=== PATIENT | female | born 1945 | race Caucasian/White ===

== ENCOUNTER 2016-08-02 08:38 | Emergency (ER) | payer MEDICARE, OTHER ==
[2016-08-02] MEDS ORDERED: guaiFENesin/DEXTROMETHORPHAN 10 ML UDC PO STA (09:05)
[2016-08-02] MEDS ORDERED: ALBUTEROL NEB 2.5 MG/3 ML INH STA (09:05)
[2016-08-02] MEDS ORDERED: BENZONATATE 100 MG CAPSULE PO STA (09:05)
[2016-08-02] MEDS ORDERED: guaiFENesin/DEXTROMETHORPHAN 10 ML UDC ONE (09:09)
[2016-08-02] MEDS ORDERED: BENZONATATE 100 MG CAPSULE PO ONE (09:09)
[2016-08-02] MEDS ORDERED: ALBUTEROL NEB 2.5 MG/3 ML INH ONE (09:20)
== END 2016-08-02 10:44 | disposition home or self-care (01) ==
DX: J18.9 Pneumonia, unspecified organism (principal); I10 Essential (primary) hypertension; E11.9 Type 2 diabetes mellitus without complications; Z79.4 Long term (current) use of insulin; Z79.82 Long term (current) use of aspirin
CPT/HCPCS: 71020; 94640; 94664; 99283; 99284; A9270; J7613

== ENCOUNTER 2016-08-25 09:45 | Outpatient (CLI) | payer MEDICARE, OTHER | END 2016-08-25 09:46 | disposition home or self-care (01) | DX: G47.33 Obstructive sleep apnea (adult) (pediatric) (principal) | CPT/HCPCS: 99214; G0463 ==

== ENCOUNTER 2016-09-25 07:36 | Outpatient (CLI) | payer MEDICARE, OTHER | END 2016-09-25 07:37 | disposition home or self-care (01) | DX: E11.9 Type 2 diabetes mellitus without complications (principal); I10 Essential (primary) hypertension; E78.5 Hyperlipidemia, unspecified; G47.33 Obstructive sleep apnea (adult) (pediatric) ==

== ENCOUNTER 2016-10-23 14:06 | Outpatient (CLI) | payer MEDICARE, OTHER | END 2016-10-23 14:07 | disposition home or self-care (01) | DX: Z12.31 Encounter for screening mammogram for malignant neoplasm of breast (principal) ==

== ENCOUNTER 2017-08-02 07:33 | Outpatient (CLI) | payer MEDICARE, OTHER ==
[2017-08-02 12:49] LABS: HB2 TOTAL 14.7 g/dL; HEMOGLOBIN A1C 0.77 g/dL; HEMOGLOBIN A1C % 6.9 % (4.6-6.2)
[2017-08-02 12:52] LABS: THYROID STIMULATING HORMONE 5.03 uIU/mL (0.34-5.60)
[2017-08-02 12:54] LABS: ALBUMIN 4.2 g/dL (3.2-5.5); ALBUMIN/GLOBULIN RATIO 1.4 (1.0-2.2); ALKALINE PHOSPHATASE 50 IU/L (42-121); ALT ALANINE AMINOTRANSFERASE 36 IU/L (10-60); AST ASPARTATE AMINOTRANSFERASE 28 IU/L (10-42); BILIRUBIN,TOTAL 0.4 mg/dL (0.2-1.0); BUN - BLOOD UREA NITROGEN 20 mg/dL (6-20); CALCIUM 8.9 mg/dL (8.5-10.3); CARBON DIOXIDE - CO2 25 mmol/L (21-32); CHLORIDE 96 mmol/L (101-111); CHOL/HDL RATIO 6.9 (<4.4); CHOLESTEROL 220 mg/dL; CREATININE 0.9 mg/dL (0.4-1.0); FREE T4 (FREE THYROXINE) 0.64 ng/dL (0.58-1.64); GFR - MDRD 62 (>89); GLUCOSE 125 mg/dL (70-100); HDL CHOLESTEROL 32 mg/dL; SODIUM 130 mmol/L (135-145); TOTAL PROTEIN 7.1 g/dL (6.7-8.2)
[2017-08-02 15:02] LABS: LDL CHOLESTEROL,DIRECT 83 mg/dL; LDLD/HDL RATIO 2.6 (<4.4)
== END 2017-08-02 07:34 | disposition home or self-care (01) ==
LOC: LAB.F 07:33
PROVIDERS: ATTEND Internal Medicine Endocrinology, Diabetes & Metabolism
DX: E11.9 Type 2 diabetes mellitus without complications (principal)
CPT/HCPCS: 36415; 80053; 80061; 83036; 84439; 84443; 84481; 86376

== ENCOUNTER 2017-08-31 11:13 | Outpatient (CLI) | payer MEDICARE, OTHER | END 2017-08-31 11:14 | disposition home or self-care (01) | LOC: SC 11:13 | PROVIDERS: ATTEND Nurse Practitioner Family | DX: G47.33 Obstructive sleep apnea (adult) (pediatric) (principal) | CPT/HCPCS: 99213; G0463; 99212 ==

== ENCOUNTER 2017-09-22 05:52 | Emergency (ER) | payer MEDICARE, OTHER ==
[2017-09-22] MEDS ORDERED: NITROFURANTOIN MACRO 100 MG CAPSULE PO STA (06:07)
--- NOTE | 2017-09-22 06:15 | ED Physician Documentation ---
PD HPI FEMALE - Stated complaint Stated Complaint: FEMALE - Chief complaint Chief Complaint: Abd Pain - History obtained from History obtained from: Patient - History of Present Illness Timing - onset: Yesterday Timing - details: Gradual onset, Still present Associated symptoms: No: Fever, Abdominal pain, Pelvic pain Recently seen: Not recently seen - Additional information Additional information: patient is a 72 year old female with no significant past medical history who is presenting to the emergency department for dysuria, increased urinary frequency and hematuria. patient states that the symptoms started yesterday and she took an azo this morning. Review of Systems Constitutional: denies: Fever, Chills Eyes: denies: Decreased vision Ears: denies: Ear pain Nose: denies: Rhinorrhea / runny nose, Congestion GI: denies: Abdominal Pain, Nausea, Vomiting : reports: Dysuria, Frequency, Hematuria Skin: reports: Reviewed and negative Musculoskeletal: reports: Reviewed and negative Neurologic: denies: Generalized weakness Immunocompromised: denies: Immunocompromised PD PAST MEDICAL HISTORY - Past Medical History Past Medical History: Yes Cardiovascular: Hypertension, High cholesterol Respiratory: None Endocrine/Autoimmune: Type 2 diabetes GI: None : None Psych: None Musculoskeletal: None Derm:  Other Past Medical History: UTI - Past Surgical History Past Surgical History: Yes /[employer]: Hysterectomy HEENT: Tonsil/Adenoidectomy - Present Medications Home Medications: Ambulatory Orders Medication Instructions Recorded Confirmed Aspirin [Aspir 81] 81 mg PO DAILY 01/10/14 01/11/14 Insulin Glargine,Hum.rec.anlog 44 unit SQ DAILY 01/10/14 01/11/14 [Lantus Solostar] Lisinopril [Zestril] 40 mg PO DAILY 01/10/14 01/11/14 Metformin HCl [Metformin HCl ER] 500 mg PO BID 01/10/14 01/11/14 Metoprolol Succinate [Toprol Xl] 25 mg PO DAILY 01/10/14 01/11/14 Simvastatin 10 mg PO DAILY 01/10/14 01/11/14 Albuterol Sulfate [Proair Hfa 2 puffs INH Q4H PRN #1 inhaler 08/02/16 Inhaler] Benzonatate [Tessalon] 100 mg PO TID PRN #20 capsule 08/02/16 amLODIPine [Norvasc] 1 tab PO DAILY 08/02/16 guaiFENesin/DEXTROMETHORPHAN 10 ml PO Q6H PRN #120 ml 08/02/16 [Robitussin Dm] Nitrofurantoin Monohyd/M-Cryst 100 mg PO BID 5 Days capsule 09/22/17 [Macrobid 100 mg Capsule] - Allergies Allergies/Adverse Reactions: Allergies Allergy/AdvReac Type Severity Reaction Status Date / Time tetracycline [Tetracycline] Allergy Hives Verified 09/22/17 06:02 - Social History Does the pt smoke?: No Smoking Status: Never smoker Does the pt drink ETOH?: No Does the pt have substance abuse?: No - Immunizations Immunizations are current?: Yes - POLST Patient has POLST: No PD ED PE NORMAL - Vitals Vital signs reviewed: Yes - General General: Alert and oriented X 3, No acute distress - HEENT HEENT: Atraumatic, PERRL - Neck Neck: Supple, no meningeal sign - Cardiac Cardiac: RRR - Respiratory Respiratory: No respiratory distress - Abdomen Abdomen: Soft, Non tender, Non distended - Back Back: No CVA TTP - Derm Derm: Normal color, Warm and dry - Extremities Extremities: No deformity - Neuro Neuro: Alert and oriented X 3, No motor deficit, No sensory deficit - Psych Psych: Normal mood Results - Vitals Vitals: Vital Signs - 24 hr 09/22/17 05:55 Temperature 98.4 C H Heart Rate 84 Respiratory 16 Rate Blood Pressure 181/100 H O2 Saturation 99 Oxygen O2 Source Room air PD MEDICAL DECISION MAKING - ED course Complexity details: reviewed old records, reviewed results, re-evaluated patient , d/w patient ED course: Patient was seen and examined at bedside. patient was well appearing and in no distress. urine was collected and patient was treated with macrobid. Patient required no further work up at this time and was stable for discharge with outpatient follow up. Departure - Departure Disposition: 01 Home, Self Care Clinical Impression: Urinary tract infection Condition: Good Instructions: ED UTI Cystitis Female Follow-Up: Nina Denney PA-C [Primary Care Provider] - As Needed Prescriptions: Nitrofurantoin Monohyd/M-Cryst [Macrobid 100 mg Capsule] 100 mg PO BID 5 Days capsule Comments: Your symptoms today are being caused by a urinary tract infection. You had your first dose of antibiotics today and will be on them for the next five days. You can take motrin, tylenol or azo as needed for pain. You should stay well hydrated and drink plenty of water. You should follow up with your doctor if your symptoms persist. You may return to the emergency department at any time for new, worsening or uncontrollable symptoms.
[2017-09-22 06:34] LABS: BILIRUBIN,URINE NEGATIVE (NEGATIVE); GLUCOSE, URINE (UA) 250 mg/dL (NEGATIVE); KETONES,URINE (UA) NEGATIVE (NEGATIVE); LEUKOCYTE ESTERASE, URINE NEGATIVE (NEGATIVE); NITRITE,URINE POSITIVE (NEGATIVE); OCCULT BLOOD,URINE LARGE (NEGATIVE); PH,URINE 5.5 PH (5.0-7.5); PROTEIN,URINE 100 mg/dL (NEGATIVE); UROBILINOGEN,URINE 1 (NORMAL) E.U./dL (NORMAL)
[2017-09-22 06:37] LABS: BACTERIA,URINE None Seen /HPF (None Seen); CLARITY,URINE BLOODY (CLEAR); RBC,URINE TNTC /HPF (0-5); SQUAMOUS EPITHELIAL CELL,UR NONE SEEN (<= Few)
[2017-09-22 06:40] VITALS: BP 164/94
== END 2017-09-22 06:40 | disposition home or self-care (01) ==
LOC: ED 05:52
DX: N39.0 Urinary tract infection, site not specified (principal); I10 Essential (primary) hypertension; E11.9 Type 2 diabetes mellitus without complications; E78.00 Pure hypercholesterolemia, unspecified; Z79.84 Long term (current) use of oral hypoglycemic drugs; Z79.4 Long term (current) use of insulin; Z79.82 Long term (current) use of aspirin
CPT/HCPCS: 81001; 87086; 99283; A9270; 81003

== ENCOUNTER 2017-10-27 10:09 | Outpatient (CLI) | payer MEDICARE, OTHER ==
--- NOTE | 2017-10-28 09:54 | Mammography Report ---
DIGITAL SCREENING MAMMOGRAM: 10/27/2017 HISTORY: Asymptomatic. COMPARISON: 10/23/2016, 09/30/2015, 10/04/2014, 08/15/2013 and 05/16/2012. TECHNIQUE: Bilateral digital CC and MLO projections with a left exaggerated CC view. FINDINGS: There is extensive fatty replacement of the breast tissue. There is no dominant mass, skin thickening, architectural distortion, clustered suspicious microcalcifications or obvious interval change. IMPRESSION: NEGATIVE. BI-RADS CATEGORY 1 - NEGATIVE. SUGGEST RETURN TO ROUTINE SCREENING IN 12 MONTHS. STANDARD QUALIFYING STATEMENTS: 1. This examination was reviewed with the aid of Computer-Aided Detection (CAD). 2. A negative or benign imaging report should not delay biopsy if clinically suspicious findings are present. Consider surgical consultation if warranted. More than 5% of cancers are not identified by imaging. 3. Dense breasts may obscure an underlying neoplasm. TD: 10/28/2017 09:53
== END 2017-10-27 10:10 | disposition home or self-care (01) ==
LOC: DI.S 10:09
PROVIDERS: ATTEND Physician Assistant Medical
DX: Z12.31 Encounter for screening mammogram for malignant neoplasm of breast (principal)
CPT/HCPCS: 77067

== ENCOUNTER 2018-01-13 15:18 | Outpatient (CLI) | payer MEDICARE, OTHER ==
[2018-01-13 17:24] LABS: BASOPHILS # (AUTO) 0.1 10^3/uL (0.0-0.1); EOSINOPHILS # (AUTO) 0.2 10^3/uL (0.0-0.7); EOSINOPHILS % (AUTO) 2.6 %; HGB - HEMOGLOBIN 13.2 g/dL (12.0-16.0); LYMPHOCYTES # (AUTO) 2.4 10^3/uL (1.5-3.5); MEAN CORPUSCULAR HEMOGLOBIN 29.5 pg (27.0-31.0); MEAN CORPUSCULAR HGB CONC 33.9 g/dL (32.0-36.0); MEAN CORPUSCULAR VOLUME 86.9 fL (81.0-99.0); MONOCYTES # (AUTO) 0.6 10^3/uL (0.0-1.0); MONOCYTES % (AUTO) 6.5 %; NEUTROPHILS # (AUTO) 5.4 10^3/uL (1.5-6.6); NEUTROPHILS % (AUTO) 61.9 %; PLT - PLATELET COUNT 312 10^3/uL (130-450); RED BLOOD COUNT 4.49 10^6/uL (4.20-5.40); RED CELL DISTRIBUTION WIDTH 14.2 % (12.0-15.0); WHITE BLOOD COUNT 8.6 x10^3/uL (4.8-10.8)
== END 2018-01-13 15:19 | disposition home or self-care (01) ==
LOC: LAB.F 15:18
PROVIDERS: ATTEND Internal Medicine
DX: Z01.812 Encounter for preprocedural laboratory examination (principal)
CPT/HCPCS: 36415; 85025

== ENCOUNTER 2018-03-03 07:18 | Outpatient (CLI) | payer MEDICARE, OTHER ==
[2018-03-03 11:29] LABS: ALBUMIN 4.1 g/dL (3.2-5.5); ALBUMIN/GLOBULIN RATIO 1.6 (1.0-2.2); BILIRUBIN,TOTAL 0.5 mg/dL (0.2-1.0); CALCIUM 9.1 mg/dL (8.5-10.3); TOTAL PROTEIN 6.7 g/dL (6.7-8.2)
[2018-03-03 11:44] LABS: THYROID STIMULATING HORMONE 5.99 uIU/mL (0.34-5.60)
[2018-03-03 11:45] LABS: FREE T4 (FREE THYROXINE) 0.75 ng/dL (0.58-1.64)
[2018-03-03 11:49] LABS: HB2 TOTAL 13.4 g/dL; HEMOGLOBIN A1C 0.73 g/dL; HEMOGLOBIN A1C % 7.1 % (4.6-6.2)
== END 2018-03-03 07:19 | disposition home or self-care (01) ==
LOC: LAB.F 07:18
PROVIDERS: ATTEND Internal Medicine Endocrinology, Diabetes & Metabolism
DX: E11.9 Type 2 diabetes mellitus without complications (principal); I10 Essential (primary) hypertension
CPT/HCPCS: 36415; 80053; 83036; 84439; 84443; 84481

== ENCOUNTER 2018-08-23 08:12 | Outpatient (CLI) | payer MEDICARE, OTHER | END 2018-08-23 08:13 | disposition home or self-care (01) | LOC: SC 08:12 | PROVIDERS: ATTEND Nurse Practitioner Family | DX: G47.33 Obstructive sleep apnea (adult) (pediatric) (principal) | CPT/HCPCS: 99214; G0463; 99212 ==

== ENCOUNTER 2018-10-19 07:05 | Outpatient (CLI) | payer MEDICARE, OTHER ==
[2018-10-19 18:45] LABS: HEMOGLOBIN A1C 0.79 g/dL; HEMOGLOBIN A1C % 7.3 % (4.6-6.2)
[2018-10-19 18:54] LABS: CREATININE,URINE 69.9 mg/dL; MICROALBUM/CREATININE RATIO,UR 8.6 ug/mg (<30.0); MICROALBUMIN,URINE 0.6 mg/dL (0-300.0)
[2018-10-19 18:57] LABS: ALBUMIN 3.9 g/dL (3.2-5.5); ALBUMIN/GLOBULIN RATIO 1.4 (1.0-2.2); ALKALINE PHOSPHATASE 53 IU/L (42-121); ALT ALANINE AMINOTRANSFERASE 27 IU/L (10-60); AST ASPARTATE AMINOTRANSFERASE 20 IU/L (10-42); BILIRUBIN,TOTAL 0.6 mg/dL (0.2-1.0); BUN - BLOOD UREA NITROGEN 19 mg/dL (6-20); CARBON DIOXIDE - CO2 27 mmol/L (21-32); CHLORIDE 98 mmol/L (101-111); CHOL/HDL RATIO 7.8 (<4.4); CHOLESTEROL 235 mg/dL; CK- CREATINE KINASE 160 IU/L (22-269); GFR - MDRD 55 (>89); GLUCOSE 146 mg/dL (70-100); HDL CHOLESTEROL 30 mg/dL; SODIUM 134 mmol/L (135-145); TOTAL PROTEIN 6.7 g/dL (6.7-8.2)
[2018-10-19 18:59] LABS: THYROID STIMULATING HORMONE 5.23 uIU/mL (0.34-5.60)
[2018-10-19 19:01] LABS: FREE T4 (FREE THYROXINE) 0.73 ng/dL (0.58-1.64)
[2018-10-19 19:19] LABS: LDL CHOLESTEROL,DIRECT 84 mg/dL; LDLD/HDL RATIO 2.8 (<4.4)
== END 2018-10-19 07:06 | disposition home or self-care (01) ==
LOC: LAB.F 07:05
PROVIDERS: ATTEND Internal Medicine Endocrinology, Diabetes & Metabolism
DX: E11.9 Type 2 diabetes mellitus without complications (principal); I10 Essential (primary) hypertension; E78.5 Hyperlipidemia, unspecified
CPT/HCPCS: 36415; 80053; 80061; 81599; 82043; 82550; 82570; 83036; 83721; 84439; 84443; 84481; 84681

== ENCOUNTER 2018-12-28 13:40 | Outpatient (CLI) | payer MEDICARE, OTHER ==
--- NOTE | 2018-12-29 09:04 | Mammography Report ---
Reason: SCREENING MAMMO Procedure Date: 12/28/2018 Accession Number: [id number] / [id number] Procedure: RAMU - Screening Mammo w/Can CPT Code: FULL RESULT: EXAM: Screening Mammo w/Can DATE: 12/28/2018 2:20 PM CLINICAL HISTORY: Screening encounter. History of early menses. TECHNIQUE: (B) - Bilateral CC, laterally exaggerated CC, MLO views were obtained. COMPARISON: 10/27/2017 through 10/04/2014. PARENCHYMAL PATTERN: (F) - The breast(s) demonstrate(s) diffuse fatty replacement. FINDINGS: There are no suspicious masses, calcifications, or areas of distortion. IMPRESSION: Negative examination. BI-RADS category 1. RECOMMENDATION: (ANNUAL) - Recommend routine annual screening mammography. BI-RADS CATEGORY: (1) - Negative. STANDARD QUALIFYING STATEMENTS: 1. This examination was not reviewed with the aid of Computer-Aided Detection (CAD). 2. A negative or benign imaging report should not preclude biopsy if clinically suspicious findings are present. 3. Dense breasts may obscure an underlying neoplasm. 4. This examination was reviewed with the aid of 3D breast imaging (tomosynthesis).
== END 2018-12-28 13:41 | disposition home or self-care (01) ==
LOC: DI 13:40
DX: Z12.31 Encounter for screening mammogram for malignant neoplasm of breast (principal)
CPT/HCPCS: 77063; 77067

== ENCOUNTER 2019-05-03 07:15 | Outpatient (CLI) | payer MEDICARE, OTHER ==
[2019-05-03 10:24] LABS: ALBUMIN 4.4 g/dL (3.2-5.5); ALBUMIN/GLOBULIN RATIO 1.5 (1.0-2.2); ALKALINE PHOSPHATASE 34 IU/L (42-121); ALT ALANINE AMINOTRANSFERASE 22 IU/L (10-60); AST ASPARTATE AMINOTRANSFERASE 19 IU/L (10-42); BILIRUBIN,TOTAL 0.5 mg/dL (0.2-1.0); BUN - BLOOD UREA NITROGEN 23 mg/dL (6-20); CALCIUM 9.4 mg/dL (8.5-10.3); CARBON DIOXIDE - CO2 29 mmol/L (21-32); CHLORIDE 96 mmol/L (101-111); CHOL/HDL RATIO 5.5 (<4.4); CHOLESTEROL 186 mg/dL; GFR - MDRD 55 (>89); GLUCOSE 159 mg/dL (70-100); HDL CHOLESTEROL 34 mg/dL; LDL CHOLESTEROL,CALCULATED 104 mg/dL; LDL/HDL RATIO 3.1 (<4.4); SODIUM 135 mmol/L (135-145); TOTAL PROTEIN 7.3 g/dL (6.7-8.2); VLDL CHOLESTEROL 48 mg/dL
[2019-05-03 10:26] LABS: HB2 TOTAL 13.7 g/dL; HEMOGLOBIN A1C 0.82 g/dL; HEMOGLOBIN A1C % 7.6 % (4.6-6.2)
[2019-05-03 10:34] LABS: THYROID STIMULATING HORMONE 5.79 uIU/mL (0.34-5.60)
[2019-05-03 10:36] LABS: FREE T4 (FREE THYROXINE) 0.78 ng/dL (0.58-1.64)
== END 2019-05-03 07:16 | disposition home or self-care (01) ==
LOC: LAB.S 07:15
PROVIDERS: ATTEND Internal Medicine Endocrinology, Diabetes & Metabolism
DX: E11.9 Type 2 diabetes mellitus without complications (principal); I10 Essential (primary) hypertension; E78.5 Hyperlipidemia, unspecified
CPT/HCPCS: 36415; 80053; 80061; 83036; 83721; 84439; 84443

== ENCOUNTER 2019-08-22 08:14 | Outpatient (CLI) | payer MEDICARE, OTHER ==
[2019-08-22 09:09] VITALS: BP 120/76
--- NOTE | 2019-08-22 09:09 | SLEEP CARE CONSULTATION ---
Information from patient questionnaire entered by Silke Livingston. I have reviewed and concur with the information entered by Silke Livingston. This document represents the service I personally performed and the decisions made by me, Simran Gar RN, MSN, MILITARY NURSE. History of Present Illness Previous diagnosis: Severe, Obstructive Sleep Apnea-Hypopnea Syndrome AHI: 35.5 Reason for follow up: annual Equipment type: CPAP Equipment obtained from: [employer] Mask style: Nasal (Dreamwear) Mask brand: Respironics Backup mask available: Yes Last cushion change: 2 days ago Prior sleep studies: Yes CPAP Compliance Data - Data Reviewed with Patient Average duration of nightly device use: 6h 51m Compliance rate %: 99.4 Current pressure setting (cmH2O): 7 Humidity setting: off - uses water for passover Heated hose setting: off Average residual AHI: 0.5 Average large leak: 41s Subjective Patient concerns: denies: aerophagia, mask discomfort, air blowing in eyes, mask leak noise, condensation in mask/hose, nasal congestion, dry mouth, nose, throat, epistaxis Observed to snore while using device: No Current pressure setting perceived as: comfortable On therapy, patient: reports: sleeping better, awakening more refreshed, being more awake and alert during the day, more rested overall. denies: drowsiness while driving Initial [place] Sleepiness Scale score: 10 Current [place] Sleepiness Scale score: 6 Allergies and Home Medications Known drug allergies: Yes (tetracycline) Home medication list reviewed: Yes Allergy and home medication list: Medication Name (generic/name brand) Strength & Dosage Metoprolol Succinate ER 25mg tabs 1 daily Metformin HCL 500mg tabs 1 BID Lisinopril 40mg tabs 1 daily Lantus Solostar 100 UNIT/ML Inject 45 units SQ daily Advil 200mg caps 1 prn TEJEDA or muscle pain Hydrochlorothiazide 25mg tabs 1 daily in the morning Ambien 10mg tabs 1 at bedtime as needed Cleocin-T 1% External Solution Apply to affected areas BID prn Amlodipine Besylate 5mg tabs 1 daily synthyroid 50mcg daily Allergy List Tetracycline Review of Systems Review of systems same as previous: No (hypothyroid) Physical Exam Blood Pressure: 120/76 Cuff size: long Heart Rate: 61 O2 Saturation: 97 Height: 5 ft 6.5 in Weight: 210 lb 9.6 oz (with boots) Weight change since last visit: lost 6 boots Body Mass Index: 33.5 BMI Classification: Obesity Class 1 Impression and Plan 1. Obstructive Sleep Apnea-Hypopnea Syndrome, severe but very severe supine, with good treatment compliance and good apnea control. On CPAP therapy, the patient has better sleep quality and is more rested overall. Patient has lost 6 pounds. Currently patients BMI is 33.3 obesity class. She joined [employer] after holidays. She has found that tracking her food has helped in addition to support system. Her goal is to lose about 30 pounds per her quill skinner. I discussed how obesity increases the risk of apnea, CPAP pressure requirements and overall health risks especially cardiovascular and diabetes. She has also increased her activity which has been helped by added thyroid supplement and assist her to lose weight. We looked at the BMI chart and her weight loss should bring her into the over weight range. We discussed the importance of proper food portions and content not only for her weight loss but her blood sugar control as guided by her quill skinner. Since she is planning on losing 30 pounds or more, the patient's CPAP pressure was changed to autoCPAP at 5-7 cmH2O to accommodate for future weight loss. Symptoms to report for additional pressure adjustment discussed. I also discussed that she should add humidity setting if dryness symptoms. Currently the use of distilled water for pass over is working. She states the warmer air from humidity has been uncom fortable in the past. Patient's apnea severity and rationale for treatment to reduce apnea, improve sleep quality and reduce cardiovascular and cerebrovascular events was reviewed. I also reviewed the benefit of consistent device use of CPAP for hypertension,diabetes. Since apnea is more supine, then if unable to use CPAP , she is to avoid supine sleep with pillow positioning and elevated her head of bed 30-40 degrees to reduce apnea risk. * * Change CPAP pressure to 5-7 cmH2O * Notify me if snoring with mask or feeling that the pressure is too much or too little * Continue to lose weight * Call this office if any problems using CPAP * Return for follow up in 1 year, or sooner if concerns arise Time Spent with Patient (minutes): 30 I spent 100% of this visit face to face with the patient with greater than 50% of this was spent time counseling the patient and coordination of care.
== END 2019-08-22 08:15 | disposition home or self-care (01) ==
LOC: SC 08:14
PROVIDERS: ATTEND Nurse Practitioner Family
DX: G47.33 Obstructive sleep apnea (adult) (pediatric) (principal); E66.9 Obesity, unspecified; Z68.33 Body mass index [BMI] 33.0-33.9, adult
CPT/HCPCS: 99214; G0463; 99212

== ENCOUNTER 2019-09-11 07:12 | Outpatient (CLI) | payer MEDICARE, OTHER ==
[2019-09-11 14:28] LABS: THYROID STIMULATING HORMONE 3.51 uIU/mL (0.34-5.60)
[2019-09-11 14:29] LABS: CALCIUM 9.1 mg/dL (8.5-10.3); CARBON DIOXIDE - CO2 28 mmol/L (21-32); CHLORIDE 100 mmol/L (101-111); GLUCOSE 88 mg/dL (70-100); SODIUM 138 mmol/L (135-145)
[2019-09-11 14:30] LABS: FREE T4 (FREE THYROXINE) 0.92 ng/dL (0.58-1.64)
[2019-09-11 14:48] LABS: HB2 TOTAL 13.4 g/dL; HEMOGLOBIN A1C 0.66 g/dL; HEMOGLOBIN A1C % 6.7 % (4.6-6.2)
[2019-09-11 15:25] LABS: CREATININE,URINE 106.3 mg/dL
[2019-09-11 15:41] LABS: ALBUMIN/GLOBULIN RATIO 1.3 (1.0-2.2); ALKALINE PHOSPHATASE 49 IU/L (42-121); ALT ALANINE AMINOTRANSFERASE 21 IU/L (10-60); AST ASPARTATE AMINOTRANSFERASE 18 IU/L (10-42); BILIRUBIN,TOTAL 0.5 mg/dL (0.2-1.0); BUN - BLOOD UREA NITROGEN 19 mg/dL (6-20); CHOL/HDL RATIO 6.1 (<4.4); CHOLESTEROL 214 mg/dL; CREATININE 0.9 mg/dL (0.4-1.0); GFR - MDRD 62 (>89); HDL CHOLESTEROL 35 mg/dL; LDL CHOLESTEROL,CALCULATED 123 mg/dL; LDL/HDL RATIO 3.5 (<4.4); TOTAL PROTEIN 7.1 g/dL (6.7-8.2); VLDL CHOLESTEROL 56 mg/dL
[2019-09-11 15:48] LABS: MICROALBUMIN,URINE < 0.2 mg/dL (0-300.0)
== END 2019-09-11 07:13 | disposition home or self-care (01) ==
LOC: LAB.S 07:12
PROVIDERS: ATTEND Internal Medicine Endocrinology, Diabetes & Metabolism
DX: E03.9 Hypothyroidism, unspecified (principal); E78.5 Hyperlipidemia, unspecified; E11.9 Type 2 diabetes mellitus without complications; Z79.4 Long term (current) use of insulin
CPT/HCPCS: 36415; 80053; 80061; 81599; 82043; 82570; 83036; 83721; 84439; 84443; 84681; 86376

== ENCOUNTER 2020-02-07 12:53 | Outpatient (CLI) | payer MEDICARE, OTHER ==
--- NOTE | 2020-02-08 11:40 | Mammography Report ---
BILATERAL DIGITAL SCREENING MAMMOGRAM 3D/2D: 02/07/2020 CLINICAL: Routine screening. Comparison is made to exams dated: 12/28/2018 mammogram, 10/27/2017 mammogram, 10/23/2016 mammogram, 2015 mammogram, 10/04/2014 mammogram, and 08/15/2013 mammogram - [facility]. There a re scattered fibroglandular elements in both breasts. No significant masses, calcifications, or other findings are seen in either breast. There has been no significant interval change. IMPRESSION: NEGATIVE There is no mammographic evidence of malignancy. A 1 year screening mammogram is recommended. This exam was interpreted at Station ID: [id number]. NOTE: For mammograms, a report in lay terms will be sent to the patient. Approximately 15% of breast malignancies will not be visualized mammographically. In the management of a palpable breast mass, a negative mammogram must not discourage biopsy of a clinically suspicious lesion. Electronically Signed By: Anna pitts/jaylen:02/07/2020 18:10:42 ACR BI-RADS Category 1: Negative [id number] PARENCHYMAL PATTERN: (A) - The breast(s) demonstrate(s) scattered fibroglandular densities. BI-RADS CATEGORY: (1) - 1 RECOMMENDATION: (ANNUAL) - Recommend routine annual screening mammography. [id number] 1 year screening LATERALITY: (B)
== END 2020-02-07 12:54 | disposition home or self-care (01) ==
LOC: DI 12:53
DX: Z12.31 Encounter for screening mammogram for malignant neoplasm of breast (principal)
CPT/HCPCS: 77063; 77067

== ENCOUNTER 2020-02-28 12:41 | Outpatient (CLI) | payer MEDICARE, OTHER ==
--- NOTE | 2020-03-01 17:30 | DEXA Report ---
PROCEDURE: Dexa Spine and/or Hip INDICATIONS: POSTMENOPAUSAL TECHNIQUE: Dual energy x-ray absorptiometry (DXA) was performed on a [employer] System. Regions measur ed are the AP Spine, femoral neck, and if needed forearm. COMPARISON: None. FINDINGS: Lumbar Spine: Bone Mineral Density 1.284 g/cm/cm,T score 0.9, Left Femoral Neck: Bone Mineral Density 1.015 g/cm/cm, T score 0.1, (T score greater or equal to -1.0: NORMAL) (T score from -1.1 to -2.4: OSTEOPENIA) (T score less than or equal to -2.5 to: OSTEOPOROSIS) Impression: Normal. Patients with diagnosis of osteoporosis or osteopenia should have regular bone mineral density assess ment. For those eligible for Medicare, routine testing is allowed once every 2 years. Testing frequ ency can be increased for patients who have rapidly progressing disease or for those who are receivin g medical therapy to restore bone mass. Reviewed by: Lauri Ordoñez MD on 02/28/2020 1:04 PM PDT Approved by: Lauri Ordoñez MD on 02/28/2020 1:04 PM PDT Station ID: [id number]
== END 2020-02-28 12:42 | disposition home or self-care (01) ==
LOC: DI 12:41
PROVIDERS: ATTEND Internal Medicine
DX: Z78.0 Asymptomatic menopausal state (principal)
CPT/HCPCS: 77080

== ENCOUNTER 2020-08-06 10:16 | Outpatient (CLI) | payer MEDICARE, OTHER ==
--- NOTE | 2020-08-06 10:54 | SLEEP CARE CONSULTATION ---
Information from patient questionnaire entered by Michelle Mcdonald. I have reviewed and concur with the information entered by Michelle Mcdonald. This document represents the service I personally performed and the decisions made by , Ailyn Santamaria ARNP. History of Present Illness Service Date and Time: 08/06/2020 1016 Previous diagnosis: Severe, Obstructive Sleep Apnea-Hypopnea Syndrome AHI: 35.5 (in 2014) Reason for follow up: annual (last seen 07/2019) Equipment type: CPAP Equipment obtained from: [facility] (getting supplies as needed) Mask style: Nasal Mask brand: Respironics (Dreamwear) Backup mask available: Yes (old mask) Last cushion change: 5-6 days ago Prior sleep studies: Yes Year and Where: 2014 - [facility] Type of Sleep Study: Polysomnography HPI additional information: SCARLETT RIVERA was diagnosed to have severe, AHI 35.5, obstructive sleep apnea- hypopnea syndrome and returned today for CPAP therapy annual follow-up. CPAP Compliance Data - Data Reviewed with Patient Average duration of nightly device use: 7 hr 11 min Compliance rate %: 100 (180 days) Current pressure setting (cmH2O): 5-7 Humidity settin Average residual AHI: 0.6 Average large leak: 23 sec Subjective Patient concerns: reports: other (head gear strap, new one is not matching like old one, too big). denies: aerophagia, mask discomfort, air blowing in eyes, mask leak noise, condensation in mask/hose, nasal congestion, dry mouth, nose, throat, epistaxis Observed to snore while using device: No Current pressure setting perceived as: comfortable On therapy, patient: reports: sleeping better, awakening more refreshed, being more awake and alert during the day, more rested overall. denies: drowsiness while driving Initial [place] Sleepiness Scale score: 10 (in 2015) Current [place] Sleepiness Scale score: 7 Allergies and Home Medications Drug allergies reviewed: Yes (tetracycline) Home medication list reviewed: Yes (no changes) Review of Systems Review of systems same as previous: Yes (no changes) Physical Exam Heart Rate: 62 O2 Saturation: 97 Height: 5 ft 6.5 in Weight: 211 lb Body Mass Index: 33.5 BMI Classification: Obese Impression and Plan 1. Obstructive Sleep Apnea-Hypopnea Syndrome, severe, with great treatment compliance and excellent apnea control. On CPAP therapy, the patient has better sleep quality and is more rested overall. Patient has no complaints or concerns about CPAP use. She is however due for a machine replacement. The patients CPAP is over 5 years old and of reasonable use. In addition, she is having trouble with the adjustment button, a sign of malfunction. Thus, the CPAP will be updated. A DWO prescription will be made. Compliance guidelines for new device and follow up discussed. Patient's apnea severity and rationale for treatment to reduce apnea, improve sleep quality and reduce cardiovascular and cerebrovascular events was reviewed. I also reviewed the benefit of consistent device use of CPAP for hypertension and diabetes. * Continue auto CPAP pressure at 5-7 cmH2O * Update CPAP machine * Notify me if snoring with mask or feeling that the pressure is too much or too little * Attempt to lose weight * Call this office if any problems using CPAP * Return for follow up in 1-2 months after updated machine use, or sooner if concerns arise Counseling Topics: Spare mask, Weight loss health impact Visit Type: In Office Time Spent with Patient (minutes): 21 Provider Statement: I spent 100% of the Face to Face Visit with the patient with greater than 50% spent counseling the patient and coordination of care.
== END 2020-08-06 10:17 | disposition home or self-care (01) ==
LOC: SC 10:16
PROVIDERS: ATTEND Nurse Practitioner Family
DX: G47.33 Obstructive sleep apnea (adult) (pediatric) (principal); E66.9 Obesity, unspecified; Z68.33 Body mass index [BMI] 33.0-33.9, adult
CPT/HCPCS: 99213; G0463; 99212

== ENCOUNTER 2020-09-17 07:14 | Outpatient (CLI) | payer MEDICARE, OTHER ==
[2020-09-17 15:21] LABS: ALBUMIN 4.2 g/dL (3.2-5.5); ALBUMIN/GLOBULIN RATIO 1.4 (1.0-2.2); ALKALINE PHOSPHATASE 54 IU/L (42-121); ALT ALANINE AMINOTRANSFERASE 20 IU/L (10-60); AST ASPARTATE AMINOTRANSFERASE 20 IU/L (10-42); BILIRUBIN,TOTAL 0.5 mg/dL (0.2-1.0); BUN - BLOOD UREA NITROGEN 21 mg/dL (6-20); CALCIUM 9.3 mg/dL (8.5-10.3); CARBON DIOXIDE - CO2 26 mmol/L (21-32); CHLORIDE 98 mmol/L (101-111); CHOL/HDL RATIO 7.5 (<4.4); CHOLESTEROL 239 mg/dL; CREATININE 1.1 mg/dL (0.4-1.0); GFR - MDRD 49 (>89); GLUCOSE 121 mg/dL (70-100); HDL CHOLESTEROL 32 mg/dL; LDL CHOLESTEROL,CALCULATED 128 mg/dL; POTASSIUM 3.5 mmol/L (3.5-5.0); SODIUM 137 mmol/L (135-145); TOTAL PROTEIN 7.2 g/dL (6.7-8.2); TRIGLYCERIDES 394 mg/dL; VLDL CHOLESTEROL 79 mg/dL
[2020-09-17 16:12] LABS: THYROID STIMULATING HORMONE 3.02 uIU/mL (0.34-5.60)
[2020-09-17 16:14] LABS: FREE T4 (FREE THYROXINE) 0.87 ng/dL (0.58-1.64)
[2020-09-17 16:30] LABS: CREATININE,URINE 70.4 mg/dL; MICROALBUM/CREATININE RATIO,UR 2.8 ug/mg (<30.0); MICROALBUMIN,URINE 0.2 mg/dL (0-300.0)
[2020-09-17 20:08] LABS: ESTIMATED AVERAGE GLUCOSE 151 mg/dL (70-100); HEMOGLOBIN A1c% 6.9 % (4.27-6.07)
== END 2020-09-17 07:15 | disposition home or self-care (01) ==
LOC: LAB.S 07:14
PROVIDERS: ATTEND Internal Medicine Endocrinology, Diabetes & Metabolism
DX: E03.9 Hypothyroidism, unspecified (principal); E11.65 Type 2 diabetes mellitus with hyperglycemia; Z79.4 Long term (current) use of insulin; I10 Essential (primary) hypertension
CPT/HCPCS: 36415; 80053; 80061; 81599; 82043; 82570; 83036; 83721; 84439; 84443; 84681

== ENCOUNTER 2020-09-20 10:04 | Outpatient (CLI) | payer MEDICARE, OTHER ==
--- NOTE | 2020-09-20 10:22 | SLEEP CARE CONSULTATION ---
Information from patient questionnaire entered by Michelle Mcdonald. I have reviewed and concur with the information entered by Michelle Mcdonald. This document represents the service I personally performed and the decisions made by , Ailyn Santamaria ARNP. History of Present Illness Service Date and Time: 09/20/2020 1004 Previous diagnosis: Severe, Obstructive Sleep Apnea-Hypopnea Syndrome AHI: 35.5 (in 2014) Reason for follow up: first compliance after device update Equipment type: CPAP Equipment obtained from: [employer] (getting supplies as needed) Mask style: Nasal Backup mask available: Yes (old mask) Last cushion change: yesterday Prior sleep studies: Yes Year and Where: 2014 - [facility] Type of Sleep Study: Polysomnography HPI additional information: SCARLETT RIVERA was diagnosed to have severe, AHI 35.5, obstructive sleep apnea- hypopnea syndrome and returned today for CPAP therapy first compliance after updating device follow-up. CPAP Compliance Data - Data Reviewed with Patient Average duration of nightly device use: 7 hr 22 min Compliance rate %: 100 Current pressure setting (cmH2O): 5-7 Humidity settin Heated hose settin Average residual AHI: 1.0 Average large leak: 8 sec Subjective Patient concerns: denies: aerophagia, mask discomfort, air blowing in eyes, mask leak noise, condensation in mask/hose, nasal congestion, dry mouth, nose, throat, epistaxis, other Observed to snore while using device: No Current pressure setting perceived as: comfortable On therapy, patient: reports: sleeping better, awakening more refreshed, being more awake and alert during the day, more rested overall. denies: drowsiness while driving Initial [place] Sleepiness Scale score: 10 (in 2014) Current [place] Sleepiness Scale score: 5 Allergies and Home Medications Drug allergies reviewed: Yes (tetracycline) Home medication list reviewed: Yes (no changes) Review of Systems Review of systems same as previous: Yes (no changes) Physical Exam Heart Rate: 54 O2 Saturation: 97 Height: 5 ft 6.5 in Weight: 213 lb Body Mass Index: 33.8 BMI Classification: Obese Impression and Plan 1. Obstructive Sleep Apnea-Hypopnea Syndrome, severe, with excellent treatment compliance and good apnea control. On CPAP therapy, the patient has better sleep quality and is more rested overall. She is trying to stay active and lose weight. Currently patients BMI is 33.8. Obesity increases the risk of apnea, CPAP pressure requirements and overall health risks especially cardiovascular and diabetes. Thus patient is advised to continue to lose weight. She has had some success using weight watchers when she was able to weigh in and be accountable to someone. She is thinking of trying to find someone at the gym to do this for her and I encouraged her to to this. The patient's CPAP pressure range should accommodate some weight loss. Patient's apnea severity and rationale for treatment to reduce apnea, improve sleep quality and reduce cardiovascular and cerebrovascular events was reviewed. I also reviewed the benefit of consistent device use of CPAP for hypertension, and diabetes. * Continue autoCPAP pressure at 4-7 cmH2O * Notify me if snoring with mask or feeling that the pressure is too much or too little * Continue to try to lose weight and stay active * Call this office if any problems using CPAP * Return for follow up in 1 year, or sooner if concerns arise Counseling Topics: Spare mask, Weight loss health impact, Activity level Visit Type: In Office Time Spent with Patient (minutes): 13 Provider Statement: I spent 100% of the Face to Face Visit with the patient with greater than 50% spent counseling the patient and coordination of care.
== END 2020-09-20 10:05 | disposition home or self-care (01) ==
LOC: SC 10:04
PROVIDERS: ATTEND Nurse Practitioner Family
DX: G47.33 Obstructive sleep apnea (adult) (pediatric) (principal); E66.9 Obesity, unspecified; Z68.33 Body mass index [BMI] 33.0-33.9, adult
CPT/HCPCS: 99212; G0463

== ENCOUNTER 2021-04-09 08:50 | Outpatient (CLI) | payer MEDICARE, OTHER ==
[2021-04-09 09:24] VITALS: BP 130/71
--- NOTE | 2021-04-09 09:24 | SLEEP CARE CONSULTATION ---
Information from patient questionnaire entered by Michelle Mcdonald. I have reviewed and concur with the information entered by Michelle Mcdonald. This document represents the service I personally performed and the decisions made by , Ailyn Santamaria ARNP. History of Present Illness Service Date and Time: 04/09/2021 0850 Previous diagnosis: Severe, Obstructive Sleep Apnea-Hypopnea Syndrome AHI: 35.5 (in 2014) Reason for follow up: first compliance after device update Equipment type: BiPAP Equipment obtained from: Other ([employer]) Mask style: Nasal Backup mask available: Yes (old mask) Last cushion change: 1.5 weeks ago Prior sleep studies: Yes Year and Where: 2014 - [facility] Type of Sleep Study: Polysomnography HPI additional information: SCARLETT RIVERA was diagnosed to have severe, AHI 35.5, obstructive sleep apnea- hypopnea syndrome and returned today for BIPAP therapy first compliance after updating device follow-up. CPAP Compliance Data - Data Reviewed with Patient Average duration of nightly device use: 7 hr 33 min Compliance rate %: 100 Current pressure setting (cmH2O): 25/4 (Ipap-median 8.2, avg 9.2, max 10.0; Epap median 4.2, avg 5.2, max 6 ) Humidity settin Average residual AHI: 0.2 Central apnea: 0.0 Obstructive apnea: 0.1 Subjective Patient concerns: denies: aerophagia, mask discomfort, air blowing in eyes, mask leak noise, condensation in mask/hose, nasal congestion, dry mouth, nose, throat, epistaxis, other Observed to snore while using device: No Current pressure setting perceived as: comfortable On therapy, patient: reports: sleeping better, awakening more refreshed, being more awake and alert during the day, more rested overall. denies: drowsiness while driving Initial [place] Sleepiness Scale score: 10 (in 2015) Current [place] Sleepiness Scale score: 3 Allergies and Home Medications Home medication list reviewed: Yes (Jardiance) Review of Systems Review of systems same as previous: Yes (no changes) Physical Exam Blood Pressure: 130/71 Cuff size: wrist Heart Rate: 56 O2 Saturation: 96 Height: 5 ft 6.5 in Weight: 207 lb Weight change since last visit: 6 lb loss Body Mass Index: 32.9 BMI Classification: Obese Impression and Plan 1. Obstructive Sleep Apnea-Hypopnea Syndrome, severe, with excellent treatment compliance and excellent apnea control. On BiPAP therapy, the patient has better sleep quality and is more rested overall. Patient returns with a BiPAP machine set at 25/4 cmH2O. she states she bought this device [id number] since her other machine was on the [employer] recall. She has liked using the BiPAP as it seems to feel comfortable at current pressures. I will adjust pressures to reflect usage to 10/4 cmH2O. It was explained to patient that she did not qualify for the BiPAP and has had good control of her apneas on CPAP in the past. When she updates her previous machine she will have to return to a CPAP. She voiced understanding. Patient has lost 6 pounds. She is watching what she eats and will continue to try to lose more weight. Patient was encouraged to lose weight for their overall health and to reduce apneas. Patient's apnea severity and rationale for treatment to reduce apnea, improve sleep quality and reduce cardiovascular and cerebrovascular events was reviewed. I also reviewed the benefit of consistent device use of CPAP for hypertension and diabetes. * Change BIPAP pressure to 10/4 cmH2O * Notify me if snoring with mask or feeling that the pressure is too much or too little * Continue to try to lose weight * Call this office if any problems using CPAP * Return for follow up in 1 year, or sooner if concerns arise Counseling Topics: Spare mask, Weight loss health impact Visit Type: In Office Time Spent with Patient (minutes): 18 Provider Statement: I spent 100% of the Face to Face Visit with the patient with greater than 50% spent counseling the patient and coordination of care.
== END 2021-04-09 08:51 | disposition home or self-care (01) ==
LOC: SC 08:50
PROVIDERS: ATTEND Nurse Practitioner Family
DX: G47.33 Obstructive sleep apnea (adult) (pediatric) (principal); E66.9 Obesity, unspecified; Z68.32 Body mass index [BMI] 32.0-32.9, adult
CPT/HCPCS: 99212; G0463

== ENCOUNTER 2021-04-22 07:04 | Outpatient (CLI) | payer MEDICARE, OTHER ==
[2021-04-22 15:09] LABS: ALBUMIN 4.2 g/dL (3.2-5.5); ALBUMIN/GLOBULIN RATIO 1.4 (1.0-2.2); BILIRUBIN,TOTAL 0.7 mg/dL (0.2-1.0); CALCIUM 9.1 mg/dL (8.5-10.3); CREATININE 1.2 mg/dL (0.4-1.0); POTASSIUM 3.5 mmol/L (3.5-5.0); TOTAL PROTEIN 7.2 g/dL (6.7-8.2)
[2021-04-22 21:16] LABS: ESTIMATED AVERAGE GLUCOSE 157 mg/dL (70-100); HEMOGLOBIN A1c% 7.1 % (4.27-6.07)
== END 2021-04-22 07:05 | disposition home or self-care (01) ==
LOC: LAB.S 07:04
DX: E11.65 Type 2 diabetes mellitus with hyperglycemia (principal); Z79.4 Long term (current) use of insulin; E03.9 Hypothyroidism, unspecified
CPT/HCPCS: 36415; 80053; 83036; 84443

== ENCOUNTER 2021-10-21 07:03 | Outpatient (CLI) | payer MEDICARE, OTHER ==
[2021-10-21 14:34] LABS: ALBUMIN 3.8 g/dL (3.2-5.5); ALBUMIN/GLOBULIN RATIO 1.3 (1.0-2.2); ALKALINE PHOSPHATASE 56 IU/L (42-121); ALT ALANINE AMINOTRANSFERASE 21 IU/L (10-60); AST ASPARTATE AMINOTRANSFERASE 19 IU/L (10-42); BILIRUBIN,TOTAL 0.6 mg/dL (0.2-1.0); BUN - BLOOD UREA NITROGEN 26 mg/dL (6-20); CALCIUM 9.3 mg/dL (8.5-10.3); CARBON DIOXIDE - CO2 28 mmol/L (21-32); CHLORIDE 102 mmol/L (101-111); CHOL/HDL RATIO 8.3 (<4.4); CHOLESTEROL 275 mg/dL; CREATININE 1.1 mg/dL (0.4-1.0); GFR - MDRD 49 (>89); GLUCOSE 121 mg/dL (70-100); HDL CHOLESTEROL 33 mg/dL; POTASSIUM 3.8 mmol/L (3.5-5.0); SODIUM 140 mmol/L (135-145); TOTAL PROTEIN 6.7 g/dL (6.7-8.2); TRIGLYCERIDES 703 mg/dL
[2021-10-21 14:46] LABS: THYROID STIMULATING HORMONE 2.67 uIU/mL (0.34-5.60)
[2021-10-21 14:47] LABS: CREATININE,URINE 77.4 mg/dL; MICROALBUM/CREATININE RATIO,UR 3.9 ug/mg (<30.0); MICROALBUMIN,URINE 0.3 mg/dL (0-300.0)
[2021-10-21 14:48] LABS: FREE T4 (FREE THYROXINE) 0.86 ng/dL (0.58-1.64)
[2021-10-21 14:56] LABS: LDL CHOLESTEROL,DIRECT 86 mg/dL; LDLD/HDL RATIO 2.6 (<4.4)
[2021-10-21 21:05] LABS: ESTIMATED AVERAGE GLUCOSE 166 mg/dL (70-100); HEMOGLOBIN A1c% 7.4 % (4.27-6.07)
== END 2021-10-21 07:04 | disposition home or self-care (01) ==
LOC: LAB.S 07:03
PROVIDERS: ATTEND Internal Medicine Endocrinology, Diabetes & Metabolism
DX: E11.65 Type 2 diabetes mellitus with hyperglycemia (principal); E03.9 Hypothyroidism, unspecified; Z79.4 Long term (current) use of insulin
CPT/HCPCS: 36415; 80053; 80061; 81599; 82043; 82570; 83036; 83721; 84439; 84443; 84681; 86200

== ENCOUNTER 2022-04-14 09:28 | Outpatient (CLI) | payer MEDICARE, OTHER ==
[2022-04-14 09:57] VITALS: BP 102/70
--- NOTE | 2022-04-14 09:57 | SLEEP CARE CONSULTATION ---
Information from patient questionnaire entered by Nora Jain. I have reviewed and concur with the information entered by Nora Jain. This document represents the service I personally performed and the decisions made by , Ailyn Santamaria ARNP. History of Present Illness Service Date and Time: 04/14/2022927 Previous diagnosis: Severe, Obstructive Sleep Apnea-Hypopnea Syndrome AHI: 35.5 (in 2014) Reason for follow up: annual (LAST SEEN 04/15) Equipment type: BiPAP (RESMED) Equipment obtained from: Other ([email or web address]; getting supplies as needed) Mask style: Nasal Mask brand: Resmed Backup mask available: Yes (old mask) Last cushion change: 2 days ago Prior sleep studies: Yes Year and Where: 2014 - [facility] Type of Sleep Study: Polysomnography HPI additional information: SCARLETT RIVERA was diagnosed to have severe, AHI 35.5, obstructive sleep apnea- hypopnea syndrome and returned today for BIPAP therapy annual follow-up. Sleep Study - Results Type of Sleep Study: Polysomnography Prior sleep studies: Yes Year and Where: 2014 - [facility] CPAP Compliance Data - Data Reviewed with Patient Average duration of nightly device use: 7 HOURS, 24 MINUTES Compliance rate %: 99 (10/15/21 TO 04/12/22; 180/180 days used) Current pressure setting (cmH2O): 10/4 Average residual AHI: 0.2 Average large leak: 0.0 Subjective Patient concerns: denies: aerophagia, mask discomfort, air blowing in eyes, mask leak noise, condensation in mask/hose, nasal congestion, dry mouth, nose, throat, epistaxis Observed to snore while using device: No Current pressure setting perceived as: comfortable On therapy, patient: reports: sleeping better, awakening more refreshed, being more awake and alert during the day, more rested overall. denies: drowsiness while driving Initial [place] Sleepiness Scale score: 10 (in 2014) Current [place] Sleepiness Scale score: 7 (04/14/22) Allergies and Home Medications Drug allergies reviewed: Yes (tetracycline) Home medication list reviewed: Yes Allergy and home medication list: Allergies tetracycline [Tetracycline] Allergy (Verified 09/22/17 06:02) Hives Medications: Trulicity (started 6 months ago) Review of Systems Review of systems same as previous: Yes (no changes) Physical Exam Vital signs obtained and entered by: SANTHOSH RIVERO Blood Pressure: 102/70 (left arm ) Cuff size: regular Heart Rate: 65 O2 Saturation: 96 Height: 5 ft 6.5 in Weight: 200 lb Weight change since last visit: 7 lb loss Body Mass Index: 31.8 BMI Classification: Obese Impression and Plan 1. Obstructive Sleep Apnea-Hypopnea Syndrome, severe, with excellent treatment compliance and excellent apnea control. On CPAP therapy, the patient has better sleep quality and is more rested overall. Patient has significant improvement of her sleep apnea and is satisfied with current CPAP therapy. Patient denies problems with oral dryness, nasal congestion, epistaxis, skin irritation or aerophagia. Patient's apnea severity and rationale for treatment to reduce apnea, improve sleep quality and reduce cardiovascular and cerebrovascular event s was reviewed. I also reviewed the benefit of consistent device use of CPAP for hypertension and diabetes. 2. Obesity, unspecified. Currently patients BMI is 31.8. Patient has lost another 7 pounds since last year. She attributes this to changing to Trulicity for her diabetes. Obesity increases the risk of apnea, CPAP pressure requirements and overall health risks especially cardiovascular and diabetes. Thus patient is advised to continue to try to lose weight. * Continue BIPAP pressure at 10/4 cmH2O * Update supplies * Notify me if snoring with mask or feeling that the pressure is too much or too little * Attempt to lose weight * Call this office if any problems using CPAP * Return for follow up in 1 year, or sooner if concerns arise Counseling Topics: Spare mask, Weight loss health impact Visit Type: In Office Time Spent with Patient (minutes): 20 Provider Statement: I spent 100% of the Face to Face Visit with the patient with greater than 50% spent counseling the patient and coordination of care.
== END 2022-04-14 09:29 | disposition home or self-care (01) ==
LOC: SC 09:28
PROVIDERS: ATTEND Nurse Practitioner Family
DX: G47.33 Obstructive sleep apnea (adult) (pediatric) (principal); E66.9 Obesity, unspecified; Z68.31 Body mass index [BMI] 31.0-31.9, adult
CPT/HCPCS: 99213; G0463; 99212

== ENCOUNTER 2022-04-27 07:07 | Outpatient (CLI) | payer MEDICARE, OTHER ==
[2022-04-27 15:06] LABS: ALBUMIN 3.9 g/dL (3.2-5.5); ALBUMIN/GLOBULIN RATIO 1.3 (1.0-2.2); BILIRUBIN,TOTAL 0.5 mg/dL (0.2-1.0); CALCIUM 9.1 mg/dL (8.5-10.3); CREATININE 1.1 mg/dL (0.4-1.0); POTASSIUM 3.8 mmol/L (3.5-5.0)
[2022-04-27 20:55] LABS: ESTIMATED AVERAGE GLUCOSE 134 mg/dL (70-100); HEMOGLOBIN A1c% 6.3 % (4.27-6.07)
== END 2022-04-27 07:08 | disposition home or self-care (01) ==
LOC: LAB.S 07:07
PROVIDERS: ATTEND Internal Medicine Endocrinology, Diabetes & Metabolism
DX: E11.65 Type 2 diabetes mellitus with hyperglycemia (principal); Z79.4 Long term (current) use of insulin; E03.9 Hypothyroidism, unspecified
CPT/HCPCS: 36415; 80053; 83036; 84443

== ENCOUNTER 2022-12-01 07:02 | Outpatient (CLI) | payer MEDICARE, OTHER ==
[2022-12-01 15:38] LABS: ALBUMIN/GLOBULIN RATIO 1.2 (1.0-2.2); ALKALINE PHOSPHATASE 49 IU/L (42-121); ALT ALANINE AMINOTRANSFERASE 25 IU/L (10-60); AST ASPARTATE AMINOTRANSFERASE 20 IU/L (10-42); BILIRUBIN,TOTAL 0.6 mg/dL (0.2-1.0); BUN - BLOOD UREA NITROGEN 23 mg/dL (6-20); CALCIUM 9.1 mg/dL (8.5-10.3); CARBON DIOXIDE - CO2 29 mmol/L (21-32); CHLORIDE 102 mmol/L (101-111); CHOL/HDL RATIO 6.3 (<4.4); CHOLESTEROL 227 mg/dL; CREATININE 1.1 mg/dL (0.4-1.0); GFR - MDRD 48 (>89); GLUCOSE 107 mg/dL (70-100); HDL CHOLESTEROL 36 mg/dL; POTASSIUM 3.6 mmol/L (3.5-5.0); SODIUM 139 mmol/L (135-145); TOTAL PROTEIN 7.4 g/dL (6.7-8.2); TRIGLYCERIDES 410 mg/dL
[2022-12-01 15:41] LABS: THYROID STIMULATING HORMONE 2.44 uIU/mL (0.34-5.60)
[2022-12-01 15:43] LABS: FREE T4 (FREE THYROXINE) 1.01 ng/dL (0.58-1.64)
[2022-12-01 16:02] LABS: CREATININE,URINE 92.7 mg/dL; MICROALBUM/CREATININE RATIO,UR 3.2 ug/mg (<30.0); MICROALBUMIN,URINE 0.3 mg/dL (0-300.0)
[2022-12-01 16:07] LABS: LDL CHOLESTEROL,DIRECT 107 mg/dL
[2022-12-01 20:30] LABS: ESTIMATED AVERAGE GLUCOSE 140 mg/dL (70-100); HEMOGLOBIN A1c% 6.5 % (4.27-6.07)
== END 2022-12-01 07:03 | disposition home or self-care (01) ==
LOC: LAB.S 07:02
PROVIDERS: ATTEND Internal Medicine Endocrinology, Diabetes & Metabolism
DX: E11.65 Type 2 diabetes mellitus with hyperglycemia (principal); Z79.4 Long term (current) use of insulin
CPT/HCPCS: 36415; 80053; 80061; 82043; 82570; 83036; 83721; 84439; 84443; 84681

== ENCOUNTER 2022-12-28 12:56 | Outpatient (CLI) | payer MEDICARE, OTHER ==
--- NOTE | 2022-12-29 12:55 | Mammography Report ---
BILATERAL DIGITAL SCREENING MAMMOGRAM 3D/2D WITH EXAGGERATED CC: 12/28/2022 CLINICAL: Routine screening. Comparison is made to exams dated: 02/07/2020 mammogram, 12/28/2018 mammogram, and 10/27/2017 mammogram - [facility]. There are scattered areas of fibroglandular density in both breasts (category b / 25%-50% glandular t issue). No significant masses, calcifications, or other findings are seen in either breast. There has been no significant interval change. IMPRESSION: NEGATIVE There is no mammographic evidence of malignancy. A 1 year screening mammogram is recommended. Based on the Tyrer Cuzick model (a risk assessment model) the patients lifetime risk is 3.3% and her 10 year risk is 3.3%. According to the ACR, ACS, and NCCN guidelines, an annual breast MRI exam renu g with mammogram is recommended if the patients lifetime risk is 20% or greater. This exam was interpreted at Station ID: [id number]. NOTE: For mammograms, a report in lay terms will be sent to the patient. Approximately 15% of breast malignancies will not be visualized mammographically. In the management of a palpable breast mass, a negative mammogram must not discourage biopsy of a clinically suspicious lesion. Electronically Signed By: Jarred [email or web address]/[email or web address]:12/28/2022 18:18:35 letter sent: No_Letter ACR BI-RADS Category 1: Negative 3341F PARENCHYMAL PATTERN: (A) - The breast(s) demonstrate(s) scattered fibroglandular densities. BI-RADS CATEGORY: (1) - 1 Mammogram [id number] 1 year screening LATERALITY: (B)
== END 2022-12-28 12:57 | disposition home or self-care (01) ==
LOC: DI.S 12:56
DX: Z12.31 Encounter for screening mammogram for malignant neoplasm of breast (principal)

== ENCOUNTER 2023-05-04 13:19 | Outpatient (CLI) | payer MEDICARE, OTHER ==
--- NOTE | 2023-05-04 14:00 | Sleep Patient Instructions ---
Sleep Center Visit Summary - Patient Visit Information Reason for Visit: Annual Visit - Patient Instructions Additional Instructions: You will continue with CPAP therapy with pressure set at 10/4 cmH2O. A supply prescription will be updated with your DME. We encourage you to continue to try to lose weight. Please follow up with the sleep care office in 1 year. - Clinic Information Contact: [facility] [address] [place] [email or web address] T: [phone]
--- NOTE | 2023-05-04 14:04 | SLEEP CARE CONSULTATION ---
Information from patient questionnaire entered by Ashley Levin. I have reviewed and concur with the information entered by Ashley Levin. This document represents the service I personally performed and the decisions made by me, Ailyn Santamaria ARNP. History of Present Illness Service Date and Time: 05/04/2023 1319 Previous diagnosis: Severe, Obstructive Sleep Apnea-Hypopnea Syndrome AHI: 35.5 (in 2014) Reason for follow up: annual (LAST SEEN 03/2022) Equipment type: BiPAP (ResMed Aircurve 10, s/u 02/2021) Equipment obtained from: Other ([email or web address]; getting supplies as needed) Mask style: Nasal Backup mask available: Yes Last cushion change: 1 week Prior sleep studies: Yes Year and Where: 2014 - [facility] Type of Sleep Study: Polysomnography HPI additional information: SCARLETT RIVERA was diagnosed to have severe, AHI 35.5, obstructive sleep apnea- hypopnea syndrome and returned today for BIPAP therapy annual follow-up. Sleep Study - Results Type of Sleep Study: Polysomnography [facility] Yes [facility] Compliance Data - Data Reviewed with Patient Average duration of nightly device use: 7 HRS 34 MINS Compliance rate %: 98 (11/01/22-04/29/23; 177/180 days used) Current pressure setting (cmH2O): 10/4; 4 support Average residual AHI: 0.4 Central apnea: 0 Obstructive apnea: 0.2 Average large leak: 0.2 L/min Subjective Missed days of use due to: reports: travel Patient concerns: reports: dry mouth, nose, throat (dry mouth; may be med related; sometimes). denies: aerophagia, mask discomfort, air blowing in eyes, mask leak noise, condensation in mask/hose, nasal congestion, epistaxis Observed to snore while using device: No Current pressure setting perceived as: comfortable On therapy, patient: reports: sleeping better, awakening more refreshed, being more awake and alert during the day, more rested overall. denies: drowsiness while driving Initial [place] Sleepiness Scale score: 10 (in 2014) Current [place] Sleepiness Scale score: 8 (05/04/23) Allergies and Home Medications Known drug allergies: Yes (as listed) Drug allergies reviewed: Yes Home medication list reviewed: Yes (Trulicity 3.0 increased doses) Allergy and home medication list: Allergies tetracycline [Tetracycline] Allergy (Verified 05/03/23 10:13) Ignacio Review of Systems Review of systems same as previous: Yes (NO CHANGE) Physical Exam Vital signs obtained and entered by: ASHLEY Silveira MA Blood Pressure: 118/64 (RIGHT) Cuff size: wrist Heart Rate: 58 O2 Saturation: 98 Height: 5 ft 6.5 in Weight: 193 lb Body Mass Index: 30.7 BMI Classification: Obese Impression and Plan 1. Obstructive Sleep Apnea-Hypopnea Syndrome, severe, with good treatment compliance and good apnea control. On BIPAP therapy, the patient has better sleep quality and is more rested overall. Patient has significant improvement of their sleep apnea and is satisfied with current CPAP therapy. Patient states she has been getting more dry mouth but it is not every morning. She thinks it is more related to her medications and some allergy she has been having this year. I advised her that does need to keep her mouth moist because this can cause dental issues. I advised her to talk to her dentist for options for mouth moisturizers. She voiced understanding. Patient's apnea severity and rationale for treatment to reduce apnea, improve sleep quality and reduce cardiovascular and cerebrovascular events was reviewed. I also reviewed the benefit of consistent device use of BIPAP for hypertension and diabetes. 2. Obesity, unspecified. Currently patients BMI is 30.7. Obesity increases the risk of apnea, BIPAP pressure requirements and overall health risks especially cardiovascular and diabetes. Thus patient is advised to continue to try to lose weight. * Continue BIPAP pressure at 10/4 cmH2O * Update supply prescription * Notify me if snoring with mask or feeling that the pressure is too much or too little * Attempt to lose weight * Call this office if any problems using BIPAP * Return for follow up in 1 year, or sooner if concerns arise Counseling Topics: Spare mask, Weight loss health impact Prescriptions: Device supplies Follow up with Sleep Care in: 1 year Visit Type: In Office Time Spent with Patient (minutes): 14 Provider Statement: I spent 100% of the Face to Face Visit with the patient with greater than 50% spent counseling the patient and coordination of care.
[2023-05-04 14:08] VITALS: BP 118/64; O2SAT 98
== END 2023-05-04 13:20 | disposition home or self-care (01) ==
LOC: SC 13:19
PROVIDERS: ATTEND Nurse Practitioner Family
DX: G47.33 Obstructive sleep apnea (adult) (pediatric) (principal); E66.9 Obesity, unspecified; Z68.30 Body mass index [BMI] 30.0-30.9, adult
CPT/HCPCS: 99212; G0463

== ENCOUNTER 2023-07-22 07:01 | Outpatient (CLI) | payer MEDICARE, OTHER ==
[2023-07-22 15:08] LABS: ALBUMIN 4.4 g/dL (3.2-5.5); ALBUMIN/GLOBULIN RATIO 1.8 (1.0-2.2); ALKALINE PHOSPHATASE 52 IU/L (42-121); ALT ALANINE AMINOTRANSFERASE 19 IU/L (10-60); AST ASPARTATE AMINOTRANSFERASE 19 IU/L (10-42); BILIRUBIN,TOTAL 0.4 mg/dL (0.2-1.0); BUN - BLOOD UREA NITROGEN 20 mg/dL (6-20); CALCIUM 9.3 mg/dL (8.5-10.3); CARBON DIOXIDE - CO2 29 mmol/L (21-32); CHLORIDE 96 mmol/L (101-111); CHOL/HDL RATIO 6.1 (<4.4); CHOLESTEROL 232 mg/dL; CREATININE 1.1 mg/dL (0.6-1.3); GFR - MDRD 48 (>89); GLUCOSE 94 mg/dL (74-104); HDL CHOLESTEROL 38 mg/dL; LDL CHOLESTEROL,CALCULATED 121 mg/dL; LDL/HDL RATIO 3.2 (<4.4); POTASSIUM 3.4 mmol/L (3.5-4.5); SODIUM 133 mmol/L (135-145); TOTAL PROTEIN 6.9 g/dL (6.4-8.9); TRIGLYCERIDES 365 mg/dL (48-352); VLDL CHOLESTEROL 73 mg/dL
[2023-07-22 20:46] LABS: ESTIMATED AVERAGE GLUCOSE 126 mg/dL (70-100)
== END 2023-07-22 07:02 | disposition home or self-care (01) ==
LOC: LAB.S 07:01
PROVIDERS: ATTEND Internal Medicine Endocrinology, Diabetes & Metabolism
DX: E11.65 Type 2 diabetes mellitus with hyperglycemia (principal); Z79.4 Long term (current) use of insulin
CPT/HCPCS: 36415; 80053; 80061; 83036; 83721

== ENCOUNTER 2024-01-24 07:07 | Outpatient (CLI) | payer MEDICARE, OTHER ==
[2024-01-24 15:42] LABS: ALBUMIN 4.3 g/dL (3.2-5.5); ALBUMIN/GLOBULIN RATIO 1.5 (1.0-2.2); ALKALINE PHOSPHATASE 55 IU/L (42-121); ALT ALANINE AMINOTRANSFERASE 13 IU/L (10-60); AST ASPARTATE AMINOTRANSFERASE 13 IU/L (10-42); BILIRUBIN,TOTAL 0.5 mg/dL (0.2-1.0); BUN - BLOOD UREA NITROGEN 25 mg/dL (6-20); CALCIUM 9.8 mg/dL (8.5-10.3); CARBON DIOXIDE - CO2 29 mmol/L (21-32); CHLORIDE 102 mmol/L (101-111); CHOL/HDL RATIO 3.9 (<4.4); CHOLESTEROL 174 mg/dL; CREATININE 1.2 mg/dL (0.6-1.3); GFR - MDRD 44 (>89); GLUCOSE 113 mg/dL (74-104); HDL CHOLESTEROL 45 mg/dL; LDL CHOLESTEROL,CALCULATED 74 mg/dL; LDL/HDL RATIO 1.6 (<4.4); SODIUM 137 mmol/L (135-145); TOTAL PROTEIN 7.2 g/dL (6.4-8.9); TRIGLYCERIDES 276 mg/dL (48-352); VLDL CHOLESTEROL 55 mg/dL
[2024-01-24 15:58] LABS: MICROALBUM/CREATININE RATIO,UR 5.5 ug/mg (<30.0); MICROALBUMIN,URINE 0.8 mg/dL
[2024-01-24 16:02] LABS: THYROID STIMULATING HORMONE 1.07 uIU/mL (0.34-5.60)
[2024-01-24 21:35] LABS: ESTIMATED AVERAGE GLUCOSE 137 mg/dL (70-100); HEMOGLOBIN A1c% 6.4 % (4.27-6.07)
== END 2024-01-24 07:08 | disposition home or self-care (01) ==
LOC: LAB.S 07:07
PROVIDERS: ATTEND Internal Medicine Endocrinology, Diabetes & Metabolism
DX: E11.65 Type 2 diabetes mellitus with hyperglycemia (principal); Z79.4 Long term (current) use of insulin; E03.9 Hypothyroidism, unspecified
CPT/HCPCS: 36415; 80053; 80061; 82043; 82570; 83036; 83721; 84439; 84443